=== PATIENT | male | born 1995 ===

== ENCOUNTER 2018-12-15 09:54 | Emergency (ER) | payer OTHER ==
[2018-12-15 10:36] VITALS: BMI 20.7
[2018-12-15 10:38] VITALS: BP 109/76; PULSE 79; RESP 18; TEMP 98.8; O2SAT 100
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
== END 2018-12-15 13:14 | disposition home or self-care (01) ==
LOC: C.ER 09:54
DX: S09.90XA Unspecified injury of head, initial encounter (principal); S16.1XXA Strain of muscle, fascia and tendon at neck level, initial encounter; S39.012A Strain of muscle, fascia and tendon of lower back, initial encounter; V89.2XXA Person injured in unspecified motor-vehicle accident, traffic, initial encounter